=== PATIENT | female | born 1995 | race Caucasian/White ===

== ENCOUNTER 2021-01-04 14:47 | Emergency (ER) | payer MEDICAID ==
[~2021-01-04 14:47] MED LIST: CYCL-1 PO; HYDR-4383 PO; NO HOME MEDS; ONDA4TAB12 PO; VALA100031 PO
--- NOTE | 2021-01-04 15:20 | NUR ---
CALLED PT, NOT IN RAP AREA
== END 2021-01-04 17:47 | disposition left against medical advice (07) ==
LOC: ER 14:48
DX: Z53.21 Procedure and treatment not carried out due to patient leaving prior to being seen by health care provider (principal)